=== PATIENT | female | born 1960 | race Caucasian/White ===

== ENCOUNTER 2017-02-27 04:47 | Emergency (ER) | payer SELFPAY ==
[~2017-02-27 04:47] MED LIST: XANA0.5T PO
[2017-02-27 04:48] VITALS: BP 135/68; PULSE 106; RESP 16; TEMP 97.8; O2SAT 96
[2017-02-27] MEDS ORDERED: BACT800T5 PO (05:08)
[2017-02-27] MEDS ORDERED: CEPH-460 PO (05:08)
--- NOTE | 2017-02-27 05:09 | PD ---
HPI Chief Complaint: Lump, Cyst, Hernia Time Seen by Provider: 05:01 Travel History International Travel<30 days: No Contact w/Intl Traveler<30days: No Traveled to known affect area: No History of Present Illness HPI 56-year-old female arrives with pain and swelling in the cervical neck towards the left side. She reports a long history of a cystic structure in that area which has been essentially asymptomatic. In the last couple days it has become painful and swollen. It was quite a bit more painful than usual this morning leading to her ER evaluation. Additionally she thinks she may have had a fever. She has applied a warm compress which has made essentially no difference. No additional complaint. PFSH Past Medical History Medical History: Denies Significant Hx Diminished Hearing: No Tubal Ligation: Yes Past Surgical History Hysterectomy: Yes Other Surgery: Yes (FACIAL RECONSTRUCTION ') Social History Alcohol Use: No Tobacco Use: Yes (1/2PPD ) Substance Use: No Allergies-Medications (Allergen,Severity, Reaction): Coded Allergies: Flexeril (Verified Allergy, Intermediate, 02/27/17) Reported Meds & Prescriptions Reported Meds & Active Scripts Active Xanax 0.5 mg (Alprazolam) Alprazolam 0.5 mg Tab 1 Tab PO Q6H PRN Review of Systems Except as stated in HPI: all other systems reviewed are Neg Physical Exam Narrative GENERAL: 56-year-old female well-nourished well-developed pleasant SKIN: Focused skin assessment warm/dry. HEAD: Atraumatic. Normocephalic. EYES: Pupils equal and round. No scleral icterus. No injection or drainage. ENT: No nasal bleeding or discharge. Mucous membranes pink and moist. NECK: Trachea midline. No JVD. In the region of the left neck there is about a 3 cm at its base raised cystic type lesion which is tender and erythematous. No fluctuance. CARDIOVASCULAR: Regular rate and rhythm. No murmur appreciated. RESPIRATORY: No accessory muscle use. Clear to auscultation. Breath sounds equal bilaterally. GASTROINTESTINAL: Abdomen soft, non-tender, nondistended. Hepatic and splenic margins not palpable. MUSCULOSKELETAL: No obvious deformities. No clubbing. No cyanosis. No edema. NEUROLOGICAL: Awake and alert. No obvious cranial nerve deficits. Motor grossly within normal limits. Normal speech. PSYCHIATRIC: Appropriate mood and affect; insight and judgment normal. Data Data Last Documented VS Vital Signs Date Time Temp Pulse Resp B/P Pulse Ox O2 Delivery O2 Flow Rate FiO2 02/27/17 04:48 97.8 106 16 135/68 96 Room Air Vital signs reviewed Orders Sulfamet-Trimeth Ds 800-160 Mg (Bactrim (02/27/17 05:15) Cephalexin (Keflex) (02/27/17 05:15) MDM Medical Decision Making Medical Screen Exam Complete: Yes Emergency Medical Condition: Yes Medical Record Reviewed: Yes Differential Diagnosis Cellulitis, abscess, infected cyst Narrative Course The patient has an infected cyst of the skin of the left neck. We'll send her home with Keflex and Bactrim. Return precautions discussed. Diagnosis Primary Impression: Infected cyst of skin Referrals: Primary Care Physician 2 days Additional Instructions: You have a choice when it comes to health care, and we are glad that you chose [facility]. Hopefully, we have met your expectations on today's visit. You are welcome to return to [facility] at any time, as we are committed to meeting the health care needs of our community. Med/Other Pt SpecificInfo: Prescription(s) given Scripts Cephalexin (Keflex)500 Mg [id number] Mg PO Q6H 10 Days Ref 0 Prov:Pantera Bowers MD 02/27/17 Sulfamethoxazole-Trimethoprim (Bactrim DS)800-160 Mg Tab1 Tab PO BID #20 TAB Ref 0 Prov:Pantera Bowers MD 02/27/17 Disposition: 01 DISCHARGE HOME Condition: Stable Pantera Bowers MD Feb 27, 2017 05:09
[2017-02-27] MEDS ORDERED: CEPHALEXIN MONOHYDRATE 500 MG CAP PO ONE (05:15)
[2017-02-27] MEDS ORDERED: SULFAMETHOXAZOLE-TRIMETHOPRIM DS 800-160 MG TAB PO ONE (05:15)
== END 2017-02-27 05:28 | disposition home or self-care (01) ==
LOC: NEPE 04:47
DX: L72.9 Follicular cyst of the skin and subcutaneous tissue, unspecified (principal); L08.9 Local infection of the skin and subcutaneous tissue, unspecified
CPT/HCPCS: 99284